=== PATIENT | female | born 1970 | race Caucasian/White ===

== ENCOUNTER 2021-12-17 06:30 | Emergency (ER) | payer BC ==
[~2021-12-17] VITALS: Ht 165.1 cm; Wt 69.9 kg
[2021-12-17] MEDS ORDERED: LISI10TA22 PO (06:36)
[2021-12-17] MEDS ORDERED: OMEP40CA4 PO (06:36)
[2021-12-17] MEDS ORDERED: NS 1,000 ML IV ONE (08:05)
[2021-12-17] MEDS ORDERED: AMPICILLIN SOD/SULBACTAM SOD 3 GM in D5W MINI-BAG PLUS 100 ML IV ONE (08:05)
[2021-12-17 08:23] LABS: BASO # 0.1 10^3/uL (0.0-0.2); BASO % 0.3 % (0.0-1.0); EOS # 0.1 10^3/uL (0.0-0.5); EOS % 0.6 % (0.0-3.0); HEMATOCRIT 42.8 % (36.0-47.0); HEMOGLOBIN 14.5 g/dl (12.0-15.5); LYMPH # 3.2 10^3/uL (1.5-5.0); LYMPH % 22.1 % (24.0-44.0); MEAN CORPUSCULAR HEMOGLOBIN 31.8 pg (27.0-33.0); MEAN CORPUSCULAR HGB CONC 33.9 g/dl (32.0-36.5); MEAN CORPUSCULAR VOLUME 93.9 fl (80.0-96.0); MONO # 0.7 10^3/uL (0.0-0.8); MONO % 4.7 % (2.0-8.0); NEUTROPHILS # 10.5 10^3/uL (1.5-8.5); PLATELET COUNT, AUTOMATED 242 10^3/uL (150-450); RED BLOOD COUNT 4.56 10^6/uL (4.00-5.40); WHITE BLOOD COUNT 14.6 10^3/uL (4.0-10.0)
[2021-12-17] MEDS ORDERED: ISOVUE-370 76% 100ML VIAL As Ordered ONE (08:54)
[2021-12-17 09:22] LABS: ERYTHROCYTE SEDIMENTATION RATE 7 mm/hr (0-30)
[2021-12-17] MEDS ORDERED: dexameTHASONE 20MG/5ML VIAL (J1100 PER 1MG) IV ONE (11:05)
[2021-12-17] MEDS ORDERED: AMOX875T2 PO (11:21)
[2021-12-17 11:25] VITALS: BP 142/88
== END 2021-12-17 11:41 | disposition home or self-care (01) ==
LOC: M ED 06:30
DX: L03.211 Cellulitis of face (principal); K04.7 Periapical abscess without sinus; I10 Essential (primary) hypertension; K21.9 Gastro-esophageal reflux disease without esophagitis; Z79.899 Other long term (current) drug therapy
CPT/HCPCS: 36415; 70487; 80047; 85025; 85652; 86140; 96365; 96375; 99284; J0295; J1100; Q9967

== ENCOUNTER 2022-08-19 18:00 | Emergency (ER) | payer BC ==
[~2022-08-19] VITALS: Ht 165.1 cm; Wt 76.3 kg
[~2022-08-19 18:00] MED LIST: AMOX875T2 PO; LISI10TA22 PO; OMEP40CA4 PO
[2022-08-19] MEDS ORDERED: BUPR15TASR (18:16)
[2022-08-19] MEDS ORDERED: BOOSTRIX VACCINE (TETANUS/DIPHTH/ACEL. PERTUSSIS) 0.5ML SYR IM ONE (19:05)
[2022-08-19] MEDS ORDERED: NORCO, ANEXSIA 5/325MG TABLET (HYDROcodone/ACETAMINOPHEN) PO ONE (19:05)
[2022-08-19] MEDS ORDERED: IBUPROFEN 600MG TAB PO ONE (19:20)
[2022-08-19] MEDS ORDERED: BACITRACIN OINTMENT 30GM TUBE TOP ONE (20:20)
[2022-08-19] MEDS ORDERED: KERLMIS12 XX (20:46)
[2022-08-19] MEDS ORDERED: XEROMIS TP (20:46)
[2022-08-19 20:57] VITALS: BP 151/67
== END 2022-08-19 20:59 | disposition home or self-care (01) ==
LOC: M ED 18:00
DX: T23.249A Burn of second degree of unspecified multiple fingers (nail), including thumb, initial encounter (principal); X19.XXXA Contact with other heat and hot substances, initial encounter; Y92.89 Other specified places as the place of occurrence of the external cause; Y93.89 Activity, other specified; Y99.8 Other external cause status; K21.9 Gastro-esophageal reflux disease without esophagitis; I10 Essential (primary) hypertension; J44.9 Chronic obstructive pulmonary disease, unspecified; Z79.899 Other long term (current) drug therapy